=== PATIENT | male | born 1990 | race Two or more races ===

== ENCOUNTER 2019-06-24 15:12 | Emergency (ER) | payer SELFPAY ==
[2019-06-24] MEDS ORDERED: Lidocaine 1% 20 ML MDV INJECT ONE (15:28)
[2019-06-24] MEDS ORDERED: Lidocaine 1% 10 ML MDV INJECT ONE (15:44)
--- NOTE | 2019-06-24 15:44 | EDM.PDOC ---
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 Superficial tissue injury noted. This occurred about ten minutes prior to arrival in the ED. - Related Data Allergies Allergy/AdvReac Type Severity Reaction Status Date / Time No Known Allergies Allergy Verified 06/24/19 15:21 Home Meds: Home Meds . [No Known Home Meds] 06/24/19 [History] Past Medical History - Past Health History Medical/Surgical History: Denies Medical/Surgical History Social & Family History - Tobacco Use Smoking Status *Q: Never Smoker - Recreational Drug Use Recreational Drug Use: No Review of Systems - Review of Systems Review Of Systems: ROS reveals no pertinent complaints other than HPI. Constitutional: Reports: No Symptoms ED EXAM, GENERAL - Physical Exam Exam Limited By: No Limitations General Appearance: Alert, No Apparent Distress Extremities: Normal Range of Motion, Other (pt able to move all fingers and has positive CMS to right hand) Neurological: Alert, Oriented Skin Exam: Wound/Incision (5 cm laceration noted to right inner bicep area) Course - Vital Signs Last Recorded V/S: Last Vital Signs Temp 97.5 F 06/24/19 15:21 Pulse 67 06/24/19 15:21 Resp 15 06/24/19 15:21 BP 125/82 06/24/19 15:21 Pulse Ox 98 06/24/19 15:21 - Orders/Labs/Meds Meds: Medications Discontinued Medications Generic Name Dose Route Start Last Admin Trade Name Freq PRN Reason Stop Dose Admin Diphtheria/Tetanus/Acell Pertussis 0.5 ml 06/24/19 15:58 06/24/19 16:12 Adacel IM 06/24/19 15:59 0.5 ml .ONCE ONE Administration Lidocaine HCl 20 ml 06/24/19 15:28 06/24/19 15:49 Xylocaine 1% INJECT 06/24/19 15:29 Not Given ONETIME ONE Lidocaine HCl 10 ml 06/24/19 15:44 06/24/19 15:49 Xylocaine 1% INJECT 06/24/19 15:45 10 ml ONETIME ONE Administration - Re-Assessments/Exams Free Text/Narrative Re-Assessment/Exam: 06/24/19 15:50 Pt is unsure of the exact date of his last tetanus shot. Requests to have his tetanus shot updated. Departure - Departure Disposition: Home, Self-Care 01 Clinical Impression: Arm laceration - Discharge Information Instructions: Laceration Care, Adult, [id number] Referrals: PCP,None [Primary Care Provider] - Forms: ED Department Discharge Additional Instructions: Laceration care instructions, stitches out in about 10-11 days. Those can be removed at our [facility]. Call [phone] for appointment. You can leave the initial dressing on for 12-24 hours, than change dressing at least once or twice daily, keep protected while at work. Have rechecked any sign of infection. <Niko Huston - Last Filed: 06/27/19 18:54> ED EXAM, GENERAL - Physical Exam Exam: See Below ED TRAUMA EXTREMITY PROCEDURES - Laceration/Wound Repair Right Medial Arm Lac/Wound Length In cm: 5 Appearance: Linear Distal NVT: Neuro & Vascular Intact Anesthetic Type: Local Local Anesthesia - Lidocaine (Xylocaine): 1% Plain Skin Prep: Saline Suture Size: 3-0 # of Sutures: 14 Suture Type: Nylon Course - Re-Assessments/Exams Free Text/Narrative Re-Assessment/Exam: 06/27/19 18:53 Initial hx and exam was done by KEKE Magallanes student. I have also examined patient. I agree with hx and exam as documented. Departure - Departure Time of Disposition: 16:27 Condition: Fair
[2019-06-24] MEDS ORDERED: Diphtheria,Pertussis(Acell),Tetanus Vaccine 0.5 ML Syringe IM ONE (15:58)
== END 2019-06-24 16:40 | disposition home or self-care (01) ==
LOC: JD.ED 15:12
DX: S41.111A Laceration without foreign body of right upper arm, initial encounter (principal); Z23 Encounter for immunization; W26.0XXA Contact with knife, initial encounter; Y93.89 Activity, other specified; Y92.009 Unspecified place in unspecified non-institutional (private) residence as the place of occurrence of the external cause; Y99.0 Civilian activity done for income or pay
CPT/HCPCS: 12002; 90471; 90700; 99282; J2001